=== PATIENT | male | born 1965 | race Caucasian/White ===

== ENCOUNTER 2018-10-12 22:18 | Inpatient (IN) | payer OTHER, MEDICAID ==
[~2018-10-12] VITALS: Ht 152.4 cm; Wt 89.4 kg
[2018-10-12] MEDS ORDERED: ASPIRIN 81MG TABLET PO ONE (23:00)
[2018-10-12] MEDS ORDERED: ONDANSETRON HCL 4MG/2ML INJ IV STA (23:00)
[2018-10-12] MEDS ORDERED: MORPHINE SULFATE 4 MG/ML CPJ (NOT FOR IM USE) IV STA (23:00)
[2018-10-12 23:26] LABS: BASOPHILS % 0.6 % (0.0-2.0); EOSINOPHILS % 9.2 % (0.0-5.0); HEMATOCRIT. 37.6 % (42.0-52.0); HEMOGLOBIN. 12.7 g/dL (14.0-18.0); MEAN CORPUSCULAR HEMOGLOBIN 31.5 pg (28.0-32.0); MEAN CORPUSCULAR VOLUME 93.5 fL (80.0-94.0); MEAN PLATELET VOLUME 8.5 fl (7.4-10.4); MONOCYTES % 7.4 % (2.0-8.0); NEUTROPHILS % 61.8 % (40.0-76.0); PLATELET 291 x1000/uL (130-400); RED BLOOD CELL COUNT 4.02 mill/uL (4.7-6.1); RED CELL DISTRIBUTION WIDTH 14.5 % (11.6-14.6)
[2018-10-12 23:28] LABS: CHLORIDE 109 mEq/L (98-107)
[2018-10-12 23:33] LABS: PARTIAL THROMBOPLASTIN TIME 28.2 sec (23.4-31.0); PROTHROMBIN TIME 10.2 sec (9.6-11.0)
[2018-10-13] MEDS ORDERED: CARV25TA47 MT ×2 (05:19→13:35)
[2018-10-13] MEDS ORDERED: RANO500T3 MT ×2 (05:20→13:35)
[2018-10-13] MEDS ORDERED: GABA800T97 MT (05:29)
[2018-10-13 08:45] VITALS: BP 130/74
[2018-10-13 10:35] VITALS: BP 130/74
[2018-10-13] MEDS ORDERED: ONDANSETRON HCL 4MG/2ML INJ IV PRN (11:00)
[2018-10-13] MEDS ORDERED: CLONIDINE 0.1MG TABLET PO PRN (11:00)
[2018-10-13] MEDS ORDERED: HYDROCODONE/ACETAMINOPHEN 5/325MG TABLET PO PRN (11:00)
[2018-10-13] MEDS ORDERED: IPRATROPIUM/ALBUTEROL 0.5-3(2.5)MG/3ML NEB INH PRN (11:00)
[2018-10-13] MEDS ORDERED: ENOXAPARIN 30MG/0.3ML SYR SUBCUT SCH ×2 (11:00→14:30)
[2018-10-13] MEDS ORDERED: ENOXAPARIN 40MG/0.4ML SYR SUBCUT SCH (11:00)
[2018-10-13] MEDS ORDERED: ACETAMINOPHEN 325MG TABLET PO PRN (11:00)
[2018-10-13 12:00] VITALS: BP 130/77
[2018-10-13] MEDS: ASPIRIN 81MG EC TABLET PO SCH (12:26)
[2018-10-13] MEDS ORDERED: ATOR20TA65 MT (13:35)
[2018-10-13] MEDS ORDERED: NIFE30TA83 MT (13:35)
[2018-10-13] MEDS ORDERED: GABA-529 PO (13:35)
[2018-10-13] MEDS ORDERED: ASPI-1160 MT (13:35)
[2018-10-13] MEDS ORDERED: LOSA100T32 MT (13:35)
[2018-10-13] MEDS ORDERED: ISOS10TA53 PO (13:35)
[2018-10-13] MEDS ORDERED: TICA90TA MT (13:35)
[2018-10-13] MEDS ORDERED: norco PO (13:35)
[2018-10-13] MEDS ORDERED: ATORVASTATIN CALCIUM 20MG TABLET PO SCH (13:45)
[2018-10-13] MEDS ORDERED: ASPIRIN 81MG TABLET PO SCH (13:45)
[2018-10-13] MEDS ORDERED: TICAGRELOR 90 MG TABLET PO SCH ×2 (14:00→14:30)
[2018-10-13] MEDS: NITROGLYCERIN OINT 1GM/INCH UDPKT TD SCH ×2 (15:05→20:49)
[2018-10-13] MEDS: NIFEDIPINE XL 30MG TAB PO SCH (15:06)
[2018-10-13] MEDS: GABAPENTIN 300MG CAPSULE PO SCH ×2 (15:14→20:49)
[2018-10-13 15:30] LABS: BASOPHILS % 0.4 % (0.0-2.0); EOSINOPHILS % 11.1 % (0.0-5.0); HEMATOCRIT. 42.1 % (42.0-52.0); HEMOGLOBIN. 14.1 g/dL (14.0-18.0); LYMPHOCYTES % 22.8 % (20.0-50.0); MEAN CORPUSCULAR HEMOGLOBIN 31.2 pg (28.0-32.0); MEAN CORPUSCULAR VOLUME 93.4 fL (80.0-94.0); MONOCYTES % 7.2 % (2.0-8.0); NEUTROPHILS % 58.5 % (40.0-76.0); PLATELET 289 x1000/uL (130-400); RED BLOOD CELL COUNT 4.51 mill/uL (4.7-6.1); RED CELL DISTRIBUTION WIDTH 14.3 % (11.6-14.6)
[2018-10-13 15:34] LABS: CHLORIDE 108 mEq/L (98-107)
[2018-10-13 15:42] LABS: LDL CHOLESTEROL 93 mg/dL (5-100)
[2018-10-13 15:44] LABS: CREATINE KINASE 109 IU/L (39-308); CREATINE KINASE MB FRACTION < 1.0 ng/mL (0.5-3.6); HDL CHOLESTEROL 46 mg/dL (40-59)
[2018-10-13 16:01] VITALS: BP 125/73
[2018-10-13] MEDS ORDERED: INFLUENZA VIRUS VACCINE(AFLURIA) 0.5ML SYR IM ONE (17:00)
[2018-10-13] MEDS ORDERED: NITROGLYCERIN OINT 1GM/INCH UDPKT TD SCH (18:00)
[2018-10-13 20:00] VITALS: BP 132/70
[2018-10-13] MEDS: ATORVASTATIN CALCIUM 20MG TABLET PO SCH (20:49)
[2018-10-13] MEDS: RANOLAZINE 500 MG TAB.SR.12H PO SCH (20:49)
[2018-10-13] MEDS: ENOXAPARIN 60MG/0.6ML SYR SUBCUT SCH (20:50)
[2018-10-14 00:05] VITALS: BP 119/69
[2018-10-14 00:28] LABS: CREATINE KINASE 110 IU/L (39-308)
[2018-10-14] MEDS: NITROGLYCERIN OINT 1GM/INCH UDPKT TD SCH ×4 (03:02→20:55)
[2018-10-14 04:00] VITALS: BP 104/72
[2018-10-14] MEDS: GABAPENTIN 300MG CAPSULE PO SCH ×3 (05:44→20:55)
[2018-10-14 06:49] LABS: BASOPHILS % 0.5 % (0.0-2.0); EOSINOPHILS % 14.4 % (0.0-5.0); HEMATOCRIT. 42.7 % (42.0-52.0); HEMOGLOBIN. 14.2 g/dL (14.0-18.0); MEAN CORPUSCULAR HEMOGLOBIN 31.4 pg (28.0-32.0); MEAN CORPUSCULAR VOLUME 94.2 fL (80.0-94.0); MEAN PLATELET VOLUME 8.9 fl (7.4-10.4); MONOCYTES % 8.3 % (2.0-8.0); NEUTROPHILS % 48.8 % (40.0-76.0); PLATELET 261 x1000/uL (130-400); RED BLOOD CELL COUNT 4.53 mill/uL (4.7-6.1); RED CELL DISTRIBUTION WIDTH 14.5 % (11.6-14.6)
[2018-10-14 07:08] LABS: CHLORIDE 107 mEq/L (98-107)
[2018-10-14 07:30] LABS: PHOSPHORUS 4.3 mg/dL (2.5-4.9)
[2018-10-14 07:32] LABS: HDL CHOLESTEROL 42 mg/dL (40-59); LDL CHOLESTEROL 97 mg/dL (5-100); T4 FREE 0.97 ng/dL (0.76-1.46)
[2018-10-14 08:00] VITALS: BP 137/81
[2018-10-14] MEDS: ASPIRIN 81MG EC TABLET PO SCH (08:33)
[2018-10-14] MEDS: RANOLAZINE 500 MG TAB.SR.12H PO SCH ×2 (08:33→20:55)
[2018-10-14] MEDS: NIFEDIPINE XL 30MG TAB PO SCH (08:34)
[2018-10-14] MEDS: TICAGRELOR 90 MG TABLET PO SCH ×2 (08:34→17:16)
[2018-10-14] MEDS: ENOXAPARIN 60MG/0.6ML SYR SUBCUT SCH ×2 (08:35→20:55)
[2018-10-14 12:00] VITALS: BP 128/76
[2018-10-14 16:00] VITALS: BP_SYST 110; BP_SYST 137; BP_SYST 143; BP_DIAS 70; BP_DIAS 71; BP_DIAS 79
[2018-10-14 17:08] LABS: CLARITY URINE CLEAR (CLEAR); COLOR URINE YELLOW (YELLOW); KETONES URINE NEGATIVE (NEGATIVE); LEUKOCYTE ESTERASE URINE NEGATIVE (NEGATIVE); NITRITE URINE NEGATIVE (NEGATIVE); OCCULT BLOOD URINE NEGATIVE (NEGATIVE); PH URINE 6.5 (4.5-8.0); PROTEIN URINE NEGATIVE (NEGATIVE); SPECIFIC GRAVITY URINE 1.006 (1.005-1.030)
[2018-10-14 17:26] LABS: *AMPHETAMINES SCREEN URINE NEGATIVE (NEGATIVE); *BARBITURATES SCREEN URINE NEGATIVE (NEGATIVE); *BENZODIAZEPINES SCREEN URINE NEGATIVE (NEGATIVE); *COCAINE SCREEN URINE NEGATIVE (NEGATIVE)
[2018-10-14 17:28] LABS: CANNABINOID URINE SCREEN NEGATIVE (NEGATIVE); METHADONE URINE SCREEN NEGATIVE (NEGATIVE); OPIATES URINE SCREEN PRESUMTIVE POSITIVE (NEGATIVE); PHENCYCLIDINE URINE SCREEN NEGATIVE (NEGATIVE)
[2018-10-14 20:10] VITALS: BP_SYST 131; BP_SYST 134; BP_SYST 136; BP_DIAS 80; BP_DIAS 81; BP_DIAS 83
[2018-10-14] MEDS: ATORVASTATIN CALCIUM 20MG TABLET PO SCH (20:55)
[2018-10-15 00:07] VITALS: BP 134/74
[2018-10-15] MEDS: NITROGLYCERIN OINT 1GM/INCH UDPKT TD SCH ×3 (02:50→14:54)
[2018-10-15 04:18] VITALS: BP 131/81
[2018-10-15] MEDS: GABAPENTIN 300MG CAPSULE PO SCH ×2 (05:25→14:28)
[2018-10-15 06:47] LABS: BASOPHILS % 0.6 % (0.0-2.0); EOSINOPHILS % 14.1 % (0.0-5.0); HEMATOCRIT. 42.2 % (42.0-52.0); LYMPHOCYTES % 28.9 % (20.0-50.0); MEAN CORPUSCULAR VOLUME 93.6 fL (80.0-94.0); MEAN PLATELET VOLUME 9.3 fl (7.4-10.4); MONOCYTES % 9.2 % (2.0-8.0); NEUTROPHILS % 47.2 % (40.0-76.0); PLATELET 286 x1000/uL (130-400); RED CELL DISTRIBUTION WIDTH 14.1 % (11.6-14.6)
[2018-10-15 07:19] LABS: CHLORIDE 104 mEq/L (98-107)
[2018-10-15 07:32] LABS: PHOSPHORUS 4.3 mg/dL (2.5-4.9)
[2018-10-15 08:00] VITALS: BP 133/88
[2018-10-15] MEDS: ASPIRIN 81MG EC TABLET PO SCH (08:45)
[2018-10-15] MEDS: TICAGRELOR 90 MG TABLET PO SCH (08:45)
[2018-10-15] MEDS: RANOLAZINE 500 MG TAB.SR.12H PO SCH (08:46)
[2018-10-15] MEDS: NIFEDIPINE XL 30MG TAB PO SCH (08:46)
[2018-10-15] MEDS: ENOXAPARIN 60MG/0.6ML SYR SUBCUT SCH (08:47)
[2018-10-15 12:00] VITALS: BP 124/82
[2018-10-15 15:49] VITALS: BP 124/82
== END 2018-10-15 16:50 | disposition home or self-care (01) | DRG 74 ==
LOC: ER 22:18 → 7WST 10-13 03:23 → ENRESERV 10-13 07:00
PROVIDERS: ADMIT Internal Medicine; ATTEND Internal Medicine
DX: G90.8 Other disorders of autonomic nervous system (principal); D68.59 Other primary thrombophilia; N17.9 Acute kidney failure, unspecified; R07.89 Other chest pain; D72.829 Elevated white blood cell count, unspecified; G62.9 Polyneuropathy, unspecified; M54.9 Dorsalgia, unspecified; E78.5 Hyperlipidemia, unspecified; G89.29 Other chronic pain; I10 Essential (primary) hypertension; I25.10 Atherosclerotic heart disease of native coronary artery without angina pectoris; I25.2 Old myocardial infarction; Z79.02 Long term (current) use of antithrombotics/antiplatelets; Z79.899 Other long term (current) drug therapy; Z82.49 Family history of ischemic heart disease and other diseases of the circulatory system; Z87.891 Personal history of nicotine dependence; Z95.5 Presence of coronary angioplasty implant and graft
CPT/HCPCS: 36415; 71045; 80048; 80061; 80305; 82550; 82553; 83735; 83880; 84100; 84439; 84443; 84484; 85379; 93005; 93306; 93970; 96372; 96374; 99285; J1650; J2405; J8499